=== PATIENT | female | born 1935 | race Caucasian/White ===

== ENCOUNTER → 2016-08-28 | Outpatient (CLI) | payer MEDICARE, BC | LOC: WC.BC 12:46 | DX: Z12.31 Encounter for screening mammogram for malignant neoplasm of breast (principal); C50.912 Malignant neoplasm of unspecified site of left female breast; Z98.82 Breast implant status; Z90.12 Acquired absence of left breast and nipple | CPT/HCPCS: 77063; G0202 ==